=== PATIENT | female | born 1995 | race Caucasian/White ===

== ENCOUNTER 2017-10-01 23:14 | Emergency (ER) | payer OTHER ==
[~2017-10-01] VITALS: Ht 172.7 cm; Wt 90.7 kg
[~2017-10-01 23:14] MED LIST: ACET500 PO; AMOX250 PO; Amoxicillin500 MG PO; BCP'S; Bactrim Ds Tab1 EACH PO; CEPH250A PO; CEPH500 PO; CETYLOZ PO; CIPRO500 MG PO; Celexa10 MG PO; Ciprodex Otic7.5 ML RIGHTEAR; Colace100 MG PO; Crutch1 EACH MISC; IBUP600 PO; IBUP800 PO; Keflex500 MG PO; MULVITMINE PO; NAPR500 PO; NITR100CA PO; Naprosyn500 MG PO; Norco 5-325 Ta1 EACH PO; PHENA200 PO; Provera10 MG PO; Pyridium100 MG PO; Pyridium200 MG PO; RXSULTRIDS PO; SUDOGEST PO; SULTRIDS PO; TRAM50 PO; TYLENOL PRN; Ultram50 MG PO
[2017-10-02 00:46] LABS: BASOPHILS ABSOLUTE AUTO 0.01 K/mm3 (0.00-0.23); BASOPHILS PERCENT AUTO 0 % (0-2); EOSINOPHILS ABSOLUTE AUTO 0.06 K/mm3 (0.00-0.68); EOSINOPHILS PERCENT AUTO 1 % (0-6); Hematocrit 43.2 % (33.0-51.0); Hemoglobin 13.5 g/dL (11.5-16.0); IMMATURE GRAN ABSOLUTE AUTO 0.05 K/mm3 (0.00-0.10); IMMATURE GRAN PERCENT AUTO 0 % (0-1); LYMPHOCYTES PERCENT AUTO 3 % (21-46); MONOCYTES ABSOLUTE AUTO 0.29 K/mm3 (0.16-1.47); MONOCYTES PERCENT AUTO 2 % (4-13); Mean Corpuscular HGB Conc 31.3 g/dL (31.5-36.5); Mean Corpuscular Volume 86 fL (80-100); Mean Platelet Volume 11.7 fL (9.1-12.4); NEUTROPHILS PERCENT AUTO 93 % (41-73); Platelet Count 267 K/mm3 (150-400); RDW Coefficient Variation 12.8 % (11.7-14.2); RDW Standard Deviation 39.9 fL (35.1-46.3); White Blood Cell Count 12.11 K/mm3 (4.00-11.30)
[2017-10-02 01:04] LABS: Alanine Aminotransfer (ALT/SGP 27 U/L (12-78); Albumin/Globulin Ratio 0.9 (0.8-1.8); Alk Phos 84 U/L (50-136); Anion Gap 6 mmol/L (6-16); Aspartate Aminotrans (AST/SGOT 14 U/L (12-37); Bilirubin, Total 0.8 mg/dL (0.1-1.0); Blood Urea Nitrogen 15 mg/dL (8-24); Bun/Creatinine Ratio 15.6 (12.0-20.0); CO2, Blood 27 mmol/L (21-32); Calcium, Blood 8.7 mg/dL (8.5-10.1); Chloride, Blood 108 mmol/L (98-108); Creatinine, Blood 0.96 mg/dL (0.40-1.00); Globulin, Blood 4.3 g/dL (2.2-4.0); Glomerular Filtration Rate >60 (60-); Glucose, Blood 95 mg/dL (70-99); Sodium, Blood 141 mmol/L (136-145); Total Protein, Blood 8.3 g/dL (6.4-8.2)
[2017-10-02 01:29] LABS: Source, Urine Clean Catch
[2017-10-02 01:34] LABS: Bilirubin, Urine Neg (Neg); Blood, Urine 5+ (Neg); Glucose Qualitative, Urine Neg (Neg); Ketones, Urine 1+ (Neg); Leukocyte Esterase, Urine 1+ (Neg); Nitrite, Urine Neg (Neg); Protein, Urine 1+ (Neg); Specific Gravity, Urine 1.015 (1.003-1.022); Urobilinogen, Urine NORM (Normal)
[2017-10-02 01:39] LABS: Appearance, Urine Hazy (Clear); Color, Urine Yellow (P-Yellow)
[2017-10-02 01:40] LABS: Amorphous Light (0-Heavy); Bacteria Mod /hpf; Mucus Mod (0-Heavy); Red Blood Cells, Urine 50-100 /hpf (0-2); Squamous Epithelial Cells Rare /hpf (Few)
[2017-10-02] MEDS ORDERED: Zofran Odt4 MG SL (02:12)
== END 2017-10-02 02:20 | disposition home or self-care (01) ==
LOC: ER 23:14
PROVIDERS: Emergency Medicine
DX: B34.9 Viral infection, unspecified (principal); Z88.6 Allergy status to analgesic agent; Z88.8 Allergy status to other drugs, medicaments and biological substances; Z86.14 Personal history of Methicillin resistant Staphylococcus aureus infection
CPT/HCPCS: 36415; 80053; 81001; 81025; 83690; 85025; 87086; 96361; 96374; 99283; J2405; J7030

== ENCOUNTER 2018-03-02 01:12 | Emergency (ER) | payer OTHER ==
[~2018-03-02] VITALS: Ht 172.7 cm; Wt 72.6 kg
[~2018-03-02 01:12] MED LIST changes: +Zofran Odt4 MG SL
[2018-03-02] MEDS ORDERED: Adipex-P37.5 MG PO (02:35)
[2018-03-02] MEDS ORDERED: Zovirax800 MG PO (03:44)
[2018-03-02] MEDS ORDERED: Percocet 5-3251 EACH PO (03:44)
[2018-03-02 04:06] LABS: Candida species (DNA Probe) Negative (NEGATIVE); G. vaginalis (DNA Probe) Negative (NEGATIVE); T. vaginalis (DNA Probe) Negative (NEGATIVE)
== END 2018-03-02 04:00 | disposition home or self-care (01) ==
LOC: ER 01:12
PROVIDERS: Emergency Medicine
DX: N76.0 Acute vaginitis (principal); Z88.5 Allergy status to narcotic agent; Z88.8 Allergy status to other drugs, medicaments and biological substances; Z86.14 Personal history of Methicillin resistant Staphylococcus aureus infection
CPT/HCPCS: 81000; 87480; 87510; 87660; 99284

== ENCOUNTER → 2018-05-05 | Outpatient (CLI) | payer OTHER ==
[~2018-05-05] MED LIST changes: +Adipex-P37.5 MG PO; +Percocet 5-3251 EACH PO; +Zovirax800 MG PO
[2018-05-07 23:09] LABS: CHLAMYDIA TRACHOMATIS, NAA Negative (Negative); NEISSERIA GONORRHOEAE, NAA Negative (Negative)
== END ==
LOC: LAB SHORT 14:05 → LAB 14:05
PROVIDERS: Registered Nurse Community Health
DX: Z34.82 Encounter for supervision of other normal pregnancy, second trimester (principal)
CPT/HCPCS: 87491; 87591

== ENCOUNTER → 2018-10-07 | Outpatient (CLI) | payer OTHER | LOC: LAB 14:03 → LAB SHORT 14:03 | DX: Z34.93 Encounter for supervision of normal pregnancy, unspecified, third trimester (principal) | CPT/HCPCS: 87081; 87653 ==

== ENCOUNTER 2018-11-13 04:00 | Inpatient (IN) | payer OTHER ==
[~2018-11-13] VITALS: Ht 172.7 cm; Wt 96.0 kg
[2018-11-13] MEDS ORDERED: Verotin-Gr Cap1 EACH PO (04:29)
[2018-11-13] MEDS ORDERED: RANI150EL (04:29)
[2018-11-13 04:40] LABS: BASOPHILS ABSOLUTE AUTO 0.04 K/mm3 (0.00-0.23); BASOPHILS PERCENT AUTO 0 % (0-2); EOSINOPHILS ABSOLUTE AUTO 0.15 K/mm3 (0.00-0.68); EOSINOPHILS PERCENT AUTO 2 % (0-6); Hematocrit 32.2 % (33.0-51.0); Hemoglobin 9.9 g/dL (11.5-16.0); IMMATURE GRAN ABSOLUTE AUTO 0.05 K/mm3 (0.00-0.10); IMMATURE GRAN PERCENT AUTO 1 % (0-1); LYMPHOCYTES ABSOLUTE AUTO 2.12 K/mm3 (0.84-5.20); LYMPHOCYTES PERCENT AUTO 23 % (21-46); MONOCYTES ABSOLUTE AUTO 0.73 K/mm3 (0.16-1.47); MONOCYTES PERCENT AUTO 8 % (4-13); Mean Corpuscular HGB 25.7 pg (26.0-34.0); Mean Corpuscular HGB Conc 30.7 g/dL (31.5-36.5); Mean Corpuscular Volume 84 fL (80-100); Mean Platelet Volume 12.5 fL (9.1-12.4); NEUTROPHILS ABSOLUTE AUTO 6.03 K/mm3 (1.96-9.15); NEUTROPHILS PERCENT AUTO 66 % (41-73); Platelet Count 202 K/mm3 (150-400); RDW Coefficient Variation 14.1 % (11.7-14.2); RDW Standard Deviation 42.8 fL (35.1-46.3); Red Blood Cell Count 3.85 M/mm3 (3.80-5.20); White Blood Cell Count 9.12 K/mm3 (4.00-11.30)
--- NOTE | 2018-11-13 21:33 | NUR ---
PATIENT UP, SHOWERED, AMBULATING, AND VOIDING WITHOUT DIFFICULTY.
[2018-11-14 05:52] LABS: BASOPHILS ABSOLUTE AUTO 0.02 K/mm3 (0.00-0.23); BASOPHILS PERCENT AUTO 0 % (0-2); EOSINOPHILS PERCENT AUTO 1 % (0-6); Hematocrit 29.9 % (33.0-51.0); Hemoglobin 9.1 g/dL (11.5-16.0); IMMATURE GRAN ABSOLUTE AUTO 0.07 K/mm3 (0.00-0.10); IMMATURE GRAN PERCENT AUTO 1 % (0-1); LYMPHOCYTES PERCENT AUTO 18 % (21-46); MONOCYTES PERCENT AUTO 8 % (4-13); Mean Corpuscular HGB 25.6 pg (26.0-34.0); Mean Corpuscular HGB Conc 30.4 g/dL (31.5-36.5); Mean Corpuscular Volume 84 fL (80-100); Mean Platelet Volume 12.3 fL (9.1-12.4); NEUTROPHILS PERCENT AUTO 73 % (41-73); Platelet Count 211 K/mm3 (150-400); RDW Coefficient Variation 14.1 % (11.7-14.2); RDW Standard Deviation 43.6 fL (35.1-46.3); Red Blood Cell Count 3.55 M/mm3 (3.80-5.20); White Blood Cell Count 13.19 K/mm3 (4.00-11.30)
--- NOTE | 2018-11-14 11:30 | NUR ---
Assumed care from Ciera Roy RN. Pt resting in bed, holding nb. Denies needs at this time.
[2018-11-14] MEDS ORDERED: IBUP800 PO (13:14)
[2018-11-14] MEDS ORDERED: IRON150C PO (13:22)
[2018-11-14] MEDS ORDERED: DOCU100 PO (13:23)
--- NOTE | 2018-11-14 16:49 | NUR ---
Printed d/c instructions reviewed w/pt. Questions answered to her satisfaction.
--- NOTE | 2018-11-14 18:45 | NUR ---
No acute changes t/o shift. ID bands matched w/nb and verification form. Pt denies additional questions/concerns. Pt d/c'd home ambulatory to care of parents.
== END 2018-11-14 18:45 | disposition home or self-care (01) | DRG 807 ==
LOC: BC 04:00
PROVIDERS: ADMIT Registered Nurse Community Health
PROC: 10E0XZZ Delivery of Products of Conception, External Approach (ICD-10-PCS; principal; 2018-11-13)
PROC: 3E0P7VZ Introduction of Hormone into Female Reproductive, Via Natural or Artificial Opening (ICD-10-PCS; 2018-11-13)
PROC: 10907ZC Drainage of Amniotic Fluid, Therapeutic from Products of Conception, Via Natural or Artificial Opening (ICD-10-PCS; 2018-11-13)
DX: O69.81X0 Labor and delivery complicated by cord around neck, without compression, not applicable or unspecified (principal); Z37.0 Single live birth; Z3A.40 40 weeks gestation of pregnancy
CPT/HCPCS: 36415; 85025; J1885; J2210; J2590; J3010; J7120

== ENCOUNTER → 2021-08-30 | Outpatient (CLI) | payer OTHER ==
[~2021-08-30] MED LIST changes: +DOCU100 PO; +IRON150C PO; +RANI150EL; +Verotin-Gr Cap1 EACH PO
[2021-08-30 20:22] LABS: Follicle Stimulating Hormone 5.6 mIU/ml; Prolactin 9.9 ng/mL
[2021-08-30 20:28] LABS: Luteinizing Hormone 14.7 mIU/ml; Thyroid Stimulating Hormone 1.25 uIU/mL (0.360-4.800)
== END ==
LOC: LAB SHORT 17:42
PROVIDERS: Registered Nurse Community Health
DX: N91.2 Amenorrhea, unspecified (principal)
CPT/HCPCS: 83001; 83002; 84146; 84439; 84443

== ENCOUNTER → 2024-03-08 | Outpatient (CLI) | payer OTHER | END | disposition home or self-care (01) | LOC: LAB SHORT 17:24 → LAB 17:24 | DX: Z32.01 Encounter for pregnancy test, result positive (principal) | CPT/HCPCS: 84702 ==

== ENCOUNTER → 2025-08-02 | Outpatient (CLI) | payer OTHER | LOC: LAB 17:42 → LAB SHORT 17:42 | DX: R06.02 Shortness of breath (principal) | CPT/HCPCS: 85379 ==